=== PATIENT | male | born 1965 | race African-American/Black ===

== ENCOUNTER 2021-09-27 08:41 | Emergency (ER) | payer BC ==
[~2021-09-27] VITALS: Ht 165.1 cm; Wt 98.0 kg
[2021-09-27 09:47] LABS: ABSOLUTE NEUTROPHILS 7.5 thou/uL (1.4-8.2); BASOPHILS 0.4 % (0.0-2.0); EOSINOPHILS 0.8 % (0.0-3.0); HEMATOCRIT 46.7 % (42.0-52.0); HEMOGLOBIN 15.8 gm/dL (14.0-18.0); LYMPHOCYTES 5.4 % (24.0-44.0); MCH 30.5 pg (26.0-34.0); MCHC 33.8 g/dL (28.0-37.0); MCV 90.3 fL (80.0-100.0); MONOCYTES 6.7 % (1.0-8.0); PLATELET COUNT 262 thou/uL (150-400); POLYS 86.7 % (36.0-66.0); RBC 5.17 mil/uL (4.50-6.00); RDW 14.2 % (10.5-14.5); WBC 8.7 thou/uL (4.0-11.0)
[2021-09-27] MEDS ORDERED: JARDIANCE25 MG PO (09:51)
[2021-09-27] MEDS ORDERED: BENICAR20 MG PO (09:51)
[2021-09-27] MEDS ORDERED: HYDROCHLOROTH12.5 M1 PO (09:52)
[2021-09-27] MEDS ORDERED: METHIMAZOLE5 MG PO (09:52)
[2021-09-27] MEDS ORDERED: LIPITOR 20 MG T20 M1 PO (09:53)
[2021-09-27] MEDS ORDERED: TRULICITY0.75 MG/0. SUBQ (09:53)
[2021-09-27] MEDS ORDERED: BASAGLAR K100 UNIT/1 SUBQ (09:53)
[2021-09-27 10:00] LABS: CREATININE 1.6 mg/dL (0.7-1.3); POTASSIUM 3.7 mmol/L (3.5-5.1)
[2021-09-27 10:50] VITALS: BP 130/67
== END 2021-09-27 11:58 | disposition home or self-care (01) ==
LOC: ER 08:41
PROVIDERS: Emergency Medicine
DX: E11.649 Type 2 diabetes mellitus with hypoglycemia without coma (principal); R61 Generalized hyperhidrosis; I10 Essential (primary) hypertension; E03.9 Hypothyroidism, unspecified; Z79.4 Long term (current) use of insulin; Z79.899 Other long term (current) drug therapy